=== PATIENT | female | born 1980 | race Caucasian/White ===

== ENCOUNTER 2024-02-13 05:55 | Day surgery (SDC) | payer BC ==
[2024-02-10 14:36] VITALS: BP 154/109
[~2024-02-13] VITALS: Ht 154.9 cm; Wt 71.4 kg
[~2024-02-13 05:55] MED LIST: ALDACTONE50 MG PO; CLARITIN10 MG PO; DEXCOM G7 RECE1 EACH MC; IBUPROFEN800 MG PO; LACTATED RINGER'S 1,000 ML IV SCH; LISINOPRIL20 MG PO; LOSARTAN-HCTZ1 EAC2 PO; NORCO 7.5-3251 EACH PO; OZEMPIC1 MG/0.71 SUB-Q; RIZATRIPTAN10 MG PO; ROSUVASTATIN CAL5 MG PO; TYLENOL WITH C1 EACH PO; VENTOLIN HFA18 GM
[2024-02-13 06:12] VITALS: BP 142/100
[2024-02-13 06:42] LABS: ANION GAP 15.6 (7-21); BUN/CREATININE RATIO 14.28 (6.0-28.6); CALCIUM 8.7 mg/dL (8.5-10.1); CREATININE, SERUM 0.84 mg/dL (0.55-1.02); POTASSIUM 3.6 mmol/L (3.5-5.1)
[2024-02-13 06:58] VITALS: BP 137/88
[2024-02-13] MEDS ORDERED: IBLOOD GLUCOSE TEST STRIP 1 EA TEST VI PRN ×2 (07:00→07:30)
[2024-02-13] MEDS ORDERED: HEParin SOD (PORCINE) 5,000 UNIT/0.5 ML SYR SUB-Q SCH (07:00)
[2024-02-13] MEDS ORDERED: LIDOCAINE HCL 1% 5 ML SDV INJ ONE (07:00)
[2024-02-13] MEDS ORDERED: fentaNYL citrate 100 MCG/2 ML VIAL ONE (07:07)
[2024-02-13] MEDS ORDERED: LIDOCAINE HCL 1% 30 ML SDV ONE (07:07)
[2024-02-13] MEDS ORDERED: KETOROLAC TROMETHAMINE 30 MG/ML VIAL ONE (07:07)
[2024-02-13] MEDS ORDERED: propofoL 200 MG/20 ML VIAL ONE (07:07)
[2024-02-13] MEDS ORDERED: dexmedeTOMIDine HCl 200 MCG/2 ML VIAL ONE (07:07)
[2024-02-13] MEDS ORDERED: MIDAZOLAM HCL 2 MG/2 ML VIAL ONE (07:07)
[2024-02-13] MEDS ORDERED: DEXAMETHASONE SOD PHOS 4 MG/ML VIAL ONE (07:07)
[2024-02-13] MEDS ORDERED: ROCURONIUM BROMIDE 50 MG/5 ML SYR ONE (07:07)
[2024-02-13] MEDS ORDERED: ondansetron HCL 4 MG/2 ML VIAL ONE (07:07)
[2024-02-13] MEDS ORDERED: SUGAMMADEX SODIUM 200 MG/2 ML ML ONE (07:11)
--- NOTE | 2024-02-13 07:25 | NUR ---
PT NOT AVAILABLE FOR VISIT. PROVIDED PRAYER.
[2024-02-13] MEDS ORDERED: NALOXONE HCL 0.4 MG SYR IV PRN ×2 (07:30→09:30)
[2024-02-13] MEDS ORDERED: fentaNYL citrate 50 MCG/ML SDV IV PRN (07:30)
[2024-02-13] MEDS ORDERED: HYDROmorphone HCL 1 MG/ML SYR IV PRN (07:30)
[2024-02-13] MEDS ORDERED: ondansetron HCL 4 MG/2 ML VIAL IV PRN ×2 (07:30→09:30)
[2024-02-13] MEDS ORDERED: ACETAMINOPHEN 1,000 MG/100 ML VIAL ONE (07:53)
[2024-02-13] MEDS ORDERED: SEVOFLURANE 250 ML BTL INH ONE (08:36)
--- NOTE | 2024-02-13 09:23 | NUR ---
02/13/24 0923 HARLAN LITTLE 0908 PT ARRIVED TO PACU VIA STREACHER, PT HAS ORAL AIRWAY IN PLACE WITH 6L OF O2 VIA FACE MASK. PT BREATHING EQUAL AND UNLABORED. REPORT TAKEN FROM GENO RIOS. 0910 PT AROUSED TO TACTILE STIMULI, PT ABLE TO FOLLOW COMMANDS AND OPEN MOUTH TO REMOVE ORAL AIRWAY. AIRWAY REMOVED BY SENIOR SUPPLY CHAIN ANALYST. 0915 BLOOD GLUCOSE 185. SENIOR SUPPLY CHAIN ANALYST NOTIFIED. 0916 O2 REMOVED FROM PT, PT OXYGEN SAT STAYNG ABOVE 96% ON RA. 921 PT AWAKE AND TALKING ABOUT CLASSES SHE IS TAKING. PT REPORTING NO PAIN AT THIS TIME OR NAUSEA.
[2024-02-13] MEDS ORDERED: FAMOTIDINE 20 MG TAB PO PRN (09:30)
[2024-02-13] MEDS ORDERED: HYDROCODONE/ACETA 5/325 TAB PO PRN (09:30)
[2024-02-13] MEDS ORDERED: MORPHINE SULFATE 10 MG/ML VIAL IV PRN (09:30)
[2024-02-13] MEDS ORDERED: METOCLOPRAMIDE HCL 10 MG/2 ML SDV IV PRN (09:30)
[2024-02-13 09:54] VITALS: BP 120/78
--- NOTE | 2024-02-13 10:35 | NUR ---
IV ZOFRAN AND MORPHINE GIVEN PER EMAR FOR C/O NAUSEA AND PAIN /10 IN ABD LAP SITES.
--- NOTE | 2024-02-13 10:44 | NUR ---
1010-PT RETURNED FROM PACU ON RA, AAOX3. PT ANSWERS QUESTIONS APPROP & IS ABLE TO MAKE HER NEEDS KNOWN. SURGICAL SITES OBSERVED WITH EDUCATION REVIEWER. 3 LAP SITES WITH DENNISON, SS, AND BANDAIDS PRESENT. RLQ LAP SITE WITH SMALL AMT OF SANGUINOUS DRAINAGE PRESENT. PT REPORTS NAUSEA, BUT IMPROVED FROM WHEN AWOKEN. PT ALSO WITH REPORTS OF PAIN 7/10 IN ABD AREA. PT AT BEDSIDE UPON RETURN TO ROOM. VS TAKEN. IV SITE ASSESSED, PATENT, AND INFUSING LR PER ORDERS. PT UTILIZING PILLOW TO BRACE ABD WITH POSITION CHANGES, COUGHING ECT. ICE WATER PROVIDED AND PT TAKING SMALL SIPS. DECLINES FOOD AT THIS TIME D/T NAUSEA. ALL QUESTIONS ANSWERED. CALL LIGHT WITHIN PT REACH. BED IN LOW POSITION, WHEELS LOCKED, BILAT RAILS IN PLACE.
--- NOTE | 2024-02-13 10:50 | NUR ---
INTO PTS ROOM TO F/U ON PAIN AND NAUSEA RELIEF WITH IV MEDS GIVEN. PT REPORTS NAUSEA IS RESOLVED AND PAIN IS DOWN TO 4/10. PT REPORTS THIS TO BE A TOLERABLE LEVEL OF PAIN FOR HER. PTS REMAINS AT BEDSIDE. CALL LIGHT WITHIN REACH. BED IN LOW POSITION, WHEELS LOCKED, BILAT RAILS IN PLACE FOR SAFETY.
[2024-02-13 11:10] VITALS: BP 131/83
--- NOTE | 2024-02-13 11:35 | NUR ---
1100-INTO PTS ROOM FOR ROUTINE REASSESSMENT. VS TAKEN. IV SITE ASSESSED. SURGICAL SITES VISUALIZED. NOTED SMALL AMT OF SHADOWING ON LAP SITE TO RLQ AND LLQ. PT CONT TO REPORT NAUSEA IS RESOLVED WITH IV ZOFRAN GIVEN PER EMAR. PAIN REMAINS AT 4/10 AFTER IV MORPHINE GIVEN PER EMAR. PT CONT TO REPORT THIS TO BE TOLERABLE FOR HER. NO VAGINAL BLEEDING OBSERVED. REMAINS IN ROOM W/PT. PT REPORTS URGE TO VOID. PT ASSISTED TO EOB AND IS UTILIZING USE OF PILLOW TO SUPPORT ABD WITH CHANGES IN POSITION TO HELP MINIMIZE PAIN/DISCOMFORT. PT THEN ABLE TO STAND AND AMBULATE [facility] WITH RN SBA FOR SAFETY. 1115-PT ABLE TO VOID APPROX 400ML OF PALE, CLR, YELLOW URINE. PT AMBUALTED BACK TO ROOM WITH RN SBA AND ASSISTED BACK INTO BED. PT REPORTS INCREASE IN PAIN TO 7/10 POST AMBULATION. SURGICAL SITES ALSO OBSERVED POST AMBULATION. NO ACUTE CHANGES IN DRSGS NOTED. CALL LIGHT WITHIN PT REACH. BED IN LOW POSITION, WHEELS LOCKED, BILAT RAILS IN PLACE. 1120-PT PROVIDED WITH APPLESAUCE AND GALI CRACKERS NOW THAT NAUSEA HAS RESOLVED. PT IN BED WITH HOB ELEVATED APPROX 45 DEGREES AND TAKING SMALL BITES. REMIANS AT BEDSIDE. 1135-ICE WATER REFILLED.
--- NOTE | 2024-02-13 11:36 | NUR ---
LE-1125-PO PRN PAIN MEDICATION AND SCHEDULED GAS-X GIVEN PER EMAR FOR C/O PAIN 11/05 POST AMBUALTION.
[2024-02-13 12:03] VITALS: BP 138/77
--- NOTE | 2024-02-13 12:30 | NUR ---
1155-PTS CALL LIGHT ANSWERED. PT REQUESTING TO USE RESTROOM. PT ASSIST TO RESTROOM WITH 1 RN SBA. PTS GAIT NOTED NOTED TO BE EVEN AND STEADY. 1200-PT ASSISTED BACK TO ROOM FROM RESTROOM. ROUTINE REASSESSMENT COMPLETED. VS TAKEN. IV SITE ASSESSED. SURGICAL SITES VISUALIZED. NO ACUTE CHANGES NOTED FROM PREVIOUS ASSESSMENT. PT DENIES NAUSEA WHEN ASKED. PT REPORTS IMPROVEMENT IN PAIN TO 4/10 WITH ORAL PAIN MEDICATIONS GIVEN (SEE EMAR). REMAINS IN ROOM AT PTS BEDSIDE. NO VAGINAL BLEEDING SEEN. 1210-PT WITH CALL LIGHT IN REACH, AT BEDSIDE, AND CLOTHING ON BED WITHIN REACH. ASSISTING PT IN DRESSING FOR DC HOME. 1220-INTO PTS ROOM FOR DISCHARGE EDUCATION. POST-OP APPT INFO GIVEN FOR 02/24/24 AT 1415. PT EDUCATED ON RESTICTIONS, WOUND CARE, AND PAIN MANAGEMENT WELL. PT PROVIDED WITH INSPIROMETER AND EDUCATION PROVIDED FOR USE WELL EDUCATION HANDOUT FOR INSTRUCTIONS FOR USE. ALL QUESTIONS ANSWERED. PT INFORMED DR. ANGEL FAXED RX'S IN FROM HIS OFFICE. TO [employer] DRIVER WORK NOTE LATER TODAY FROM DR. ANGEL OFFICE. 1230- LEFT TO PULL VEHICLE AROUND FRONT. IV REMOVED. TIP OBSERVED TO BE INTACT. PRESSURE DRSG PLACED WITH GAUZE AND COBAN.
--- NOTE | 2024-02-13 12:35 | NUR ---
PT DISCHARGED FROM DS VIA WC TO PASSENGER SIDE OF HUSBANDS VEHICLE. ALL PERSONAL BELONGINGS TAKEN WITH HER.
[2024-02-13] MEDS ORDERED: SIMETHICONE 125 MG TABLET CHEWABLE PO SCH (13:00)
--- NOTE | 2024-02-13 21:28 | EKG ---
[facility] [address] [facility] [address] [place], [place] [address] Signed Normal sinus rhythm Normal ECG No previous ECGs available Confirmed by Omar De La Cruz MD ([id number]) on 02/13/2024 9:27:55 PM Electronically Signed By: OMAR DE LA CRUZ DO 02/[id number] PATIENT NAME: CARLOS FAJARDO Electrocardiogram DATE OF : 76 PHYSICIAN: OMAR DE LA CRUZ DO REPORT #: [id number] REPORT IS CONFIDENTIAL AND NOT TO BE RELEASED WITHOUT AUTHORIZATION
--- NOTE | 2024-02-18 10:26 | PATH ---
[facility] [address] [place], [place] [address] Signed SPECIMEN(S): A RIGHT OVARY SPECIMEN SOURCE: A. RIGHT OVARY CLINICAL HISTORY: Endometriosis FINAL PATHOLOGIC DIAGNOSIS: Right ovary: - Benign ovary with hemorrhagic corpus luteum and benign cystic follicles. - Fragments of benign oviduct and fimbria. - Benign paratubal serous cyst. - Negative for endometriosis on the sections. [facility] MICROSCOPIC EXAMINATION: Histologic sections of all submitted blocks are examined by light microscopy. These findings, together with the gross examination, support the pathologic diagnosis. GROSS DESCRIPTION: The specimen, labeled and designated "Dev, right ovary," is received in formalin and consists of a 14.5 g, intact, oophorectomy specimen which overall measures 4.3 x 3.7 x 2.4 cm. The specimen displays a convoluted and cystic capsule that is otherwise intact. A partial piece of, what appears to be, fallopian tube fimbria is identified along its external surface. Sectioning demonstrates multiple cysts ranging from 0.2-1.6 cm in greatest dimension along with hemorrhagic corpus luteum. The ovarian parenchyma is otherwise unremarkable. Also found is a bright-white, circular, medical office asst that appears to be from a prior ligation procedure. It is embedded within a dilated, luminal surface. [employer] Programs sections are submitted in A1-A2. Cassette Summary: (A1) ovary with fallopian tube fimbria, and site of medical office asst (presumed sterilization device) (A2) additional sections of ovarian parenchyma AM (under the direct supervision of a pathologist) The Gross Description was prepared using a voice recognition system. The report PATIENT NAME: CARLOS FAJARDO PATHOLOGY DATE OF : 76 REPORT #: [id number] PHYSICIAN: BRENTON CARIAS PCP: CADENCE GODOY PA-C REPORT IS CONFIDENTIAL AND NOT TO BE RELEASED WITHOUT AUTHORIZATION [facility] [address] [place], [place] [address] Signed was reviewed for accuracy; however, sound-alike word errors, addition and/or deletions may occur. If there is any question about this report, please contact Client Services. ADDITIONAL NOTES: Immunohistochemical and/or in situ hybridization studies if performed in this case included appropriate positive controls that reacted as expected. This test was developed and its performance characteristics determined by [facility]. It has not been cleared or approved by the U.S. Food and Drug Administration. The FDA has determined that such clearance or approval is not necessary. This test is used for clinical purposes. It should not be regarded as investigational or for research. [facility] is certified under the Clinical Laboratory Improvement Amendments of 1988 (CLIA) as qualified to perform high complexity clinical laboratory testing. PERFORMING LABORATORY: Technical component was performed by [facility], [address] [place] [id number] (CLIA# [id number]). Professional interpretation was performed by [facility] [place] - [address] [place] [address] (CLIA#: [id number]). Diagnostician: Brijesh Gaffney MD Pathologist Electronically Signed 02/18/2024 Copies: ~ PATIENT NAME: CARLOS FAJARDO PATHOLOGY DATE OF : 76 REPORT #: [id number] PHYSICIAN: BRENTON PATHOLOGY PCP: CADENCE GODOY PA-C REPORT IS CONFIDENTIAL AND NOT TO BE RELEASED WITHOUT AUTHORIZATION
== END 2024-02-13 12:35 | disposition home or self-care (01) ==
LOC: OPS 05:55 → DS 05:55 → OPS 07:30
PROVIDERS: Nurse Anesthetist, Certified Registered; ATTEND Obstetrics & Gynecology
PROC: 0UB08ZZ Excision of Right Ovary, Via Natural or Artificial Opening Endoscopic (ICD-10-PCS; principal; 2024-02-13 07:30)
DX: N83.11 Corpus luteum cyst of right ovary (principal); N83.8 Other noninflammatory disorders of ovary, fallopian tube and broad ligament; N73.6 Female pelvic peritoneal adhesions (postinfective); E28.2 Polycystic ovarian syndrome; I10 Essential (primary) hypertension; E11.9 Type 2 diabetes mellitus without complications; G43.109 Migraine with aura, not intractable, without status migrainosus; E89.0 Postprocedural hypothyroidism; E78.5 Hyperlipidemia, unspecified; Z87.891 Personal history of nicotine dependence; Z79.899 Other long term (current) drug therapy; Z88.1 Allergy status to other antibiotic agents; Z88.5 Allergy status to narcotic agent; Z88.8 Allergy status to other drugs, medicaments and biological substances; Z90.710 Acquired absence of both cervix and uterus; Z90.49 Acquired absence of other specified parts of digestive tract
CPT/HCPCS: 00840; 36415; 80048; 93005; 93010; A9270; J0131; J1100; J1644; J1885; J2250; J2270; J2405; J2704; J3010; J3490; J7121